=== PATIENT | male | born 1985 | race Caucasian/White ===

== ENCOUNTER 2016-09-22 03:16 | Emergency (ER) | payer OTHER ==
[~2016-09-22] VITALS: Ht 188 cm; Wt 115.7 kg
[2016-09-22 04:22] LABS: ABSOLUTE BASOPHIL COUNT 0 /CUMM (0.0-0.2); ABSOLUTE EOSINOPHIL COUNT 0.1 /CUMM (0.0-0.7); ABSOLUTE LYMPH COUNT 1.4 /CUMM (1.2-3.4); ABSOLUTE MONOCYTE COUNT 0.6 /CUMM (0.10-0.60); BASOPHIL % 0.5 % (0.0-2.0); EOSINOPHIL % 1.6 % (0-5); GRANULOCYTE % 65.5 % (42.2-75.2); HEMATOCRIT 43.5 % (42-52); MEAN CORPUSCULAR HGB 31.3 PG (27.0-31.0); MEAN CORPUSCULAR HGB CONC 35.3 G/DL (33.0-37.0); MEAN CORPUSCULAR VOLUME 88.7 FL (80.0-94.0); MEAN PLATELET VOLUME 8.4 FL (7.4-10.4); PLATELET COUNT 163 /CUMM (130-400); RBC DISTRIBUTION WIDTH 13.7 % (11.5-14.5); RED BLOOD CELL CT 4.91 /CUMM (4.70-6.10); WHITE BLOOD CELL COUNT 6.1 /CUMM (4.8-10.8)
[2016-09-22] MEDS ORDERED: LEVSIN-SL0.125 MG SL (05:09)
[2016-09-22] MEDS ORDERED: ULTRAM50 M1 PO (05:09)
[2016-09-22] MEDS ORDERED: ZOFRAN ODT4 M1 SL (05:09)
--- NOTE | 2016-09-22 05:11 | ED GI/GU/ABDOMINAL COMPLAINT ---
History of Present Illness General Chief Complaint: Abdominal Pain/Flank Pain Stated Complaint: ABD PAIN Source: patient, old records Exam Limitations: no limitations Vital Signs & Intake/Output Vital Signs & Intake/Output Vital Signs Date Time Temp Pulse Resp B/P Pulse O2 O2 Flow FiO2 Ox Delivery Rate 09/22 0340 99.5 124 18 168/89 96 Room Air Allergies Coded Allergies: No Known Allergies (09/22/16) Reconcile Medications Hyoscyamine Sulfate (Levsin-Sl) 0.125 MG TAB.SUBL 1-2 TAB SL Q4P PRN abdominal cramps, diarrhea Ondansetron (Zofran Odt) 4 MG TAB.RAPDIS 1 TAB SL TID PRN nausea vomiting Tramadol HCl (Ultram) 50 MG TABLET 1-2 TAB PO Q6PRN PRN severe pain Triage Note: PT TO ED C/O LUQ ABDOMINAL PAIN RADIATING TO BACK THAT BEGAN YESTERDAY MORNING GETTING INCREASINGLY WORSE, NAUSEA, 4 EPISODES OF VOMITING, DIARRHEA AND CHILLS. PT DENIES CP, SOB, FEVER. Triage Nurses Notes Reviewed? yes Onset: Morning Duration: hour(s):, continues in ED, waxing and waning Timing: recent history Quality/Severity: aching, severe, vomiting Location: epigastric, left upper quadrant Radiation: back Activities at Onset: none Prior Abdominal Problems: none Past Sexual History: Unobtainable at this time Modifying Factors: Worsens With: eating, palpation. Associated Symptoms: abdominal pain, diarrhea, loss of appetite, nausea/vomiting HPI: 1 day prior to admission patient complains of epigastric moderate to severe pain radiating to his back constant associated with nausea vomiting frequent loose watery stool. He denies fever chills chest pain cough shortness of breath headache dysuria rash bleeding Past History Travel History Traveled to [place] past 21 day No Medical History Any Pertinent Medical History? see below for history Cardiovascular: hypertension Surgical History Surgical History: non-contributory Psychosocial History What is your primary language Bhutanese Tobacco Use: Never used Family History Hx Contributory? No Review of Systems Review of Systems Constitutional: Reports: see HPI, malaise. EENTM: Reports: no symptoms. Respiratory: Reports: no symptoms. Cardiovascular: Reports: no symptoms. GI: Reports: see HPI, abdominal pain, diarrhea, nausea, vomiting. Genitourinary: Reports: no symptoms. Musculoskeletal: Reports: no symptoms. Skin: Reports: no symptoms. Neurological/Psychological: Reports: no symptoms. Hematologic/Endocrine: Reports: no symptoms. Immunologic/Allergic: Reports: no symptoms. All Other Systems: Reviewed and Negative Physical Exam Physical Exam General Appearance: well developed/nourished, alert, awake, anxious, moderate distress, obese Head: atraumatic, normal appearance Eyes: Bilateral: normal appearance, PERRL, EOMI, normal inspection. Ears, Nose, Throat, Mouth: hearing grossly normal, moist mucous membrane Neck: normal inspection, supple, full range of motion, normal alignment Respiratory: normal breath sounds, chest non-tender, no respiratory distress, quiet respiration, lungs clear Cardiovascular: regular rate/rhythm, normal peripheral pulses, norml femoral pulses equa Peripheral Pulses: 4+ carotid (R), 4+ carotid (L) Gastrointestinal: normal bowel sounds, soft, no organomegaly, tenderness ( epigastric) Male Genitals: normal genitalia Back: normal inspection, normal range of motion Extremities: normal range of motion, no ligament instability Neurologic/Psych: no motor/sensory deficits, awake, alert, oriented x 3, normal gait, normal mood/affect Skin: intact, normal color, warm/dry Core Measures ACS in differential dx? No Severe Sepsis Present: No Septic Shock Present: No Progress Differential Diagnosis: biliary colic, gastritis, PUD/GERD Plan of Care: Orders Procedure Date/time Status LIPASE 09/22 351 Complete COMPREHENSIVE METABOLIC PANEL 09/22 351 Complete CBC WITHOUT DIFFERENTIAL 09/22 351 Complete Laboratory Tests 09/22/16 0406: Anion Gap 14, Estimated GFR > 60, BUN/Creatinine Ratio 15.6, Glucose 126 H, Calcium 8.9, Total Bilirubin 1.0, AST 158 H, ALT 102 H, Alkaline Phosphatase 127 H, Total Protein 7.6, Albumin 4.4, Globulin 3.2, Albumin/Globulin Ratio 1.4 , Lipase 70, CBC w Diff NO MAN DIFF REQ, RBC 4.91, MCV 88.7, MCH 31.3 H, RDW 13.7, MPV 8.4, Gran % 65.5, Lymphocytes % 22.9, Monocytes % 9.5 H, Eosinophils % 1.6, Basophils % 0.5, Absolute Granulocytes 4.0, Absolute Lymphocytes 1.4, Absolute Monocytes 0.6, Absolute Eosinophils 0.1, Absolute Basophils 0, PUBS MCHC 35.3 Diagnostic Imaging: Viewed by Me: CT Scan. Discussed w/RAD: CT Scan. Radiology Impression: No acute inflammatory findings. Hepatomegaly with hepatic steatosis. Initial ED EKG: none Departure Departure Time of Disposition: 050 Disposition: HOME OR SELF CARE Condition: Stable Clinical Impression Primary Impression: Nausea, vomiting, and diarrhea Secondary Impressions: Abdominal pain Qualifiers: Abdominal location: epigastric Qualified Code: R10.13 - Epigastric pain Referrals: UNKNOWN (PCP/Family) Additional Instructions: Clear liquids in small amounts for 12-24 hours until better Departure Forms: Customer Survey General Discharge Information Prescriptions: Current Visit Scripts Ondansetron (Zofran Odt) 1 TAB SL TID PRN nausea vomiting #15 TAB Hyoscyamine Sulfate (Levsin-Sl) 1-2 TAB SL Q4P PRN abdominal cramps, diarrhea #30 TAB Tramadol HCl (Ultram) 1-2 TAB PO Q6PRN PRN severe pain #30 TAB
--- NOTE | 2016-09-22 06:27 | CT SCAN REPORT ---
EXAMINATION: CT ABDOMEN AND PELVIS WITHOUT CONTRAST CLINICAL INFORMATION: Epigastric pain. Nausea, vomiting, diarrhea. COMPARISON: None TECHNIQUE: Multidetector volumetric imaging was performed from the superior aspect of the liver through the pubic symphysis. Sagittal and coronal reformatted images were obtained on the technologist's workstation. DLP: 1483 mGy-cm FINDINGS: LUNG BASES: The visualized lung bases are unremarkable. LIVER, GALLBLADDER, AND BILIARY TREE: The liver is enlarged, measuring 25 cm in CC dimension. It is diffusely decreased in attenuation, consistent with hepatic steatosis. No focal hepatic lesion. The gallbladder is unremarkable with no evidence of radiopaque gallstones, gallbladder wall thickening, or obvious pericholecystic inflammatory changes. PANCREAS: Unremarkable. SPLEEN: Unremarkable. ADRENAL GLANDS: Unremarkable. KIDNEYS AND URETERS: The kidneys are normal in size, shape, and attenuation. No hydronephrosis, hydroureter, or calculi seen. No perinephric stranding. BLADDER: Unremarkable. GASTROINTESTINAL TRACT: The stomach and small bowel appear unremarkable. No dilated loops of bowel or evidence of obstruction. Normal appendix. Scattered colonic diverticulosis without diverticulitis. No free air or free fluid. ABDOMINAL WALL: No significant hernia is appreciated. LYMPH NODES: Normal. VASCULAR: Unremarkable. PELVIC VISCERA: The prostate and seminal vesicles are unremarkable. OSSEOUS STRUCTURES: No acute or suspicious osseous abnormality. IMPRESSION: No acute inflammatory findings. Hepatomegaly with hepatic steatosis.
[2016-09-22 06:45] VITALS: BP 155/74
== END 2016-09-22 06:45 ==
LOC: ERH 03:16
PROVIDERS: Emergency Medicine
DX: R11.2 Nausea with vomiting, unspecified (principal); R19.7 Diarrhea, unspecified; R10.13 Epigastric pain
CPT/HCPCS: 74176; 96374; 96375; 96376; J1885; J2405

== ENCOUNTER 2016-10-17 17:26 | Emergency (ER) | payer OTHER ==
[~2016-10-17] VITALS: Ht 188 cm; Wt 117.9 kg
[~2016-10-17 17:26] MED LIST: LEVSIN-SL0.125 MG SL; ULTRAM50 M1 PO; ZOFRAN ODT4 M1 SL
--- NOTE | 2016-10-17 17:38 | ED GI/GU/ABDOMINAL COMPLAINT ---
History of Present Illness General Chief Complaint: Abdominal Pain/Flank Pain Stated Complaint: ABD/BACK PAIN Source: patient, family Exam Limitations: no limitations Vital Signs & Intake/Output Vital Signs & Intake/Output Vital Signs Date Time Temp Pulse Resp B/P Pulse O2 O2 Flow FiO2 Ox Delivery Rate 10/17 1859 98.5 113 18 131/72 95 Room Air Room Air 10/17 1733 98.6 120 16 146/80 98 Room Air Room Air ED Intake and Output 10/18 0000 10/17 1200 Intake Total 1000 Output Total Balance 1000 Intake, IV 1000 Patient 260 lb Weight Allergies Coded Allergies: No Known Allergies (10/17/16) Reconcile Medications Amlodipine Besylate 10 MG TABLET 1 TAB PO DAILY BP (Reported) Metoprolol Tartrate 25 MG TABLET 1 TAB PO BID HEART/BP (Reported) Ondansetron (Zofran Odt) 4 MG TAB.RAPDIS 1 TAB SL TID PRN nausea Oxycodone HCl/Acetaminophen (Percocet 5-325 MG Tablet) 5 MG-325 MG TABLET 1 TAB PO Q6H PRN PAIN do not drink any alcohol if you take this medication Pantoprazole Sodium (Protonix) 40 MG TABLET.DR 1 TAB PO DAILY abdominal pain Zolpidem Tartrate 10 MG TABLET 1 TAB PO PRN SLEEP (Reported) Triage Note: PT TOT RIAGE WITH LEFT SIDED ABD PAIN THAT RADIATES INTO HIS BACK. STATES IT STARTED TODAY AND FEELS LIKE PANCREATITIS, WITH HX OF THE SAME. DENIES FEVERS, NAUSEOUS WITHOUT VOMITING. Triage Nurses Notes Reviewed? yes HPI: Patient is a 30-year-old male resents complaining of left upper abdominal pain radiating into his back. Pain onset a couple of hours ago. Pain is a sharp pain is currently severe worsens with palpation. Pain is consistent with patient's previous episodes of pancreatitis. Patient reports that his pancreatitis is multifactorial, was on doxycycline for an extended course which he was told could cause pancreatitis, also has a history of elevated triglycerides, and drinks alcohol 3-4 drinks almost daily. Last alcohol intake was today. Associated nausea and chills. Patient's temperature was 99.6F at home today. The patient sees a install and repair technician out of [place](DR. Henriquez). Patient denies urinary symptoms, diarrhea, chest pain, dyspnea. (RONALDO KIDD,KEL) Past History Travel History Traveled to [place] past 21 day No Medical History Any Pertinent Medical History? see below for history Neurological: NONE EENT: NONE Cardiovascular: hypertension Respiratory: NONE Gastrointestinal: pancreatitis Hepatic: NONE Renal: NONE Musculoskeletal: NONE Psychiatric: NONE Endocrine: NONE Blood Disorders: NONE Cancer(s): NONE Surgical History Surgical History: non-contributory Psychosocial History What is your primary language South African Tobacco Use: Never used ETOH Use: heavy use Illicit Drug Use: denies illicit drug use Family History Hx Contributory? No (KEL VELAZQUEZ) Review of Systems Review of Systems Constitutional: Reports: chills. Denies: fever. EENTM: Reports: no symptoms. Respiratory: Denies: cough, short of breath. Cardiovascular: Denies: chest pain. GI: Reports: see HPI. Genitourinary: Reports: no symptoms. Musculoskeletal: Reports: back pain. Skin: Reports: no symptoms. Neurological/Psychological: Reports: no symptoms. Hematologic/Endocrine: Reports: no symptoms. Immunologic/Allergic: Reports: no symptoms. (KEL VELAZQUEZ) Physical Exam Physical Exam General Appearance: alert, awake Head: atraumatic, normal appearance Eyes: Bilateral: normal appearance, PERRL, EOMI. Ears, Nose, Throat, Mouth: hearing grossly normal, moist mucous membrane Neck: normal inspection, supple, full range of motion Respiratory: normal breath sounds, chest non-tender, no respiratory distress, lungs clear Cardiovascular: tachycardia (regular rhythm, no murmur) Gastrointestinal: soft, epigastric and left upper quadrant tenderness. Negative García sign, negative McBurney's point tenderness Back: left paraspinal tenderness in the superior lumbar area Extremities: normal range of motion, no edema, no calf tenderness Neurologic/Psych: no motor/sensory deficits, awake, alert, oriented x 3, normal mood/affect Skin: intact, normal color, warm/dry Core Measures ACS in differential dx? No Severe Sepsis Present: No Septic Shock Present: No (KEL VELAZQUEZ) Progress Differential Diagnosis: gastritis, hepatitis, pancreatitis, PUD/GERD, ureterolithiasis, UTI/pyelo Plan of Care: Orders Procedure Date/time Status LIPASE 10/17 174 Complete ETHANOL 10/17 1744 Complete COMPREHENSIVE METABOLIC PANEL 10/17 174 Complete CBC WITHOUT DIFFERENTIAL 10/18 1743 Complete AMYLASE 10/17 174 Complete Laboratory Tests 10/17/16 1757: Anion Gap 14, Estimated GFR > 60, BUN/Creatinine Ratio 15.6, Glucose 173 H, Calcium 8.8, Total Bilirubin 0.6, AST 168 H, ALT 161 H, Alkaline Phosphatase 127 H, Total Protein 7.3, Albumin 4.4, Globulin 2.9, Albumin/Globulin Ratio 1.5 , Amylase < 30 L, Lipase 92, CBC w Diff NO MAN DIFF REQ, RBC 5.06, MCV 89.7, MCH 31.0, RDW 14.5, MPV 8.1, Gran % 63.8, Lymphocytes % 26.0, Monocytes % 8.4, Eosinophils % 1.3, Basophils % 0.5, Absolute Granulocytes 4.5, Absolute Lymphocytes 1.9, Absolute Monocytes 0.6, Absolute Eosinophils 0.1, Absolute Basophils 0, PUBS MCHC 34.6, Serum Alcohol 158.0 10/17/2016 6:51:10 PM: Labs consistent with previous. Patient reports that he had moderate relief initially from the pain medication and antinausea medicine and now pain is returning. Results of labs discussed with patient. Discussed with patient the importance of refraining from alcohol. Offered patient resources for alcohol detox, patient declined. Patient instructed to follow up with his install and repair technician for further evaluation. Additional pain medication and antinausea medication ordered. (KEL VELAZQUEZ) Initial ED EKG: none (KEL VELAZQUEZ) Departure Departure Disposition: HOME OR SELF CARE Condition: Stable Clinical Impression Primary Impression: Abdominal pain Qualifiers: Abdominal location: left upper quadrant Qualified Code: R10.12 - Left upper quadrant pain Secondary Impressions: Alcohol intoxication Qualifiers: Complication of substance-induced condition: with unspecified complication Qualified Code: F10.129 - Alcohol abuse with intoxication, unspecified Chronic pancreatitis Qualifiers: Pancreatitis type: unspecified pancreatitis type Qualified Code: K86.1 - Other chronic pancreatitis Referrals: UNKNOWN (PCP/Family) Additional Instructions: Follow up with your GI doctor, Dr. Henriquez, this week for further evaluation. Clear liquid diet for the next 24-48 hours then advance diet as tolerated. It is very important that you cut down and ultimately eliminate alcohol. If you are going through severe withdrawal then you can come back to the emergency department for further evaluation. Also return to the emergency department if unable to stay hydrated, temperature goes above 100.4, pain uncontrollable or worsening of symptoms. Departure Forms: Customer Survey General Discharge Information Prescriptions: Current Visit Scripts Pantoprazole Sodium (Protonix) 1 TAB PO DAILY #14 TAB Ondansetron (Zofran Odt) 1 TAB SL TID PRN nausea #10 TAB Oxycodone HCl/Acetaminophen (Percocet 5-325 MG Tablet) 1 TAB PO Q6H PRN PAIN #10 TAB do not drink any alcohol if you take this medication (KEL VELAZQUEZ) PA/GROUND LAYER Co-Sign Statement Statement: ED Attending supervision documentation- [] I saw and evaluated the patient. I have also reviewed all the pertinent lab results and diagnostic results. I agree with the findings and the plan of care as documented in the PA's/GROUND LAYER's documentation. [X] I have reviewed the ED Record and agree with the PA's/GROUND LAYER's documentation. [] Additions or exceptions (if any) to the PAs/GROUND LAYER's note and plan are summarized below: [] (ANTONIO LISA,CARITO)
[2016-10-17 18:11] LABS: ABSOLUTE BASOPHIL COUNT 0 /CUMM (0.0-0.2); ABSOLUTE EOSINOPHIL COUNT 0.1 /CUMM (0.0-0.7); ABSOLUTE GRANULOCYTE CT 4.5 /CUMM (1.4-6.5); ABSOLUTE LYMPH COUNT 1.9 /CUMM (1.2-3.4); ABSOLUTE MONOCYTE COUNT 0.6 /CUMM (0.10-0.60); BASOPHIL % 0.5 % (0.0-2.0); EOSINOPHIL % 1.3 % (0-5); GRANULOCYTE % 63.8 % (42.2-75.2); HEMATOCRIT 45.4 % (42-52); MEAN CORPUSCULAR HGB CONC 34.6 G/DL (33.0-37.0); MEAN CORPUSCULAR VOLUME 89.7 FL (80.0-94.0); MEAN PLATELET VOLUME 8.1 FL (7.4-10.4); PLATELET COUNT 265 /CUMM (130-400); RBC DISTRIBUTION WIDTH 14.5 % (11.5-14.5); RED BLOOD CELL CT 5.06 /CUMM (4.70-6.10); WHITE BLOOD CELL COUNT 7.1 /CUMM (4.8-10.8)
[2016-10-17] MEDS ORDERED: METOPROLOL TART25 M1 PO (18:35)
[2016-10-17] MEDS ORDERED: AMLODIPINE BESY10 M1 PO (18:35)
[2016-10-17] MEDS ORDERED: ZOLPIDEM TARTRA10 M1 PO (18:36)
[2016-10-17] MEDS ORDERED: ZOFRAN ODT4 M1 SL (18:47)
[2016-10-17] MEDS ORDERED: PERCOCET 5-3251 EACH PO (18:47)
[2016-10-17] MEDS ORDERED: PROTONIX40 M3 PO (18:47)
[2016-10-17 18:59] VITALS: BP 131/72
== END 2016-10-17 19:25 ==
LOC: ERH 17:26
PROVIDERS: Physician Assistant
DX: R10.12 Left upper quadrant pain (principal); R10.13 Epigastric pain; F10.129 Alcohol abuse with intoxication, unspecified; K86.1 Other chronic pancreatitis
CPT/HCPCS: 96361; 96374; 96375; 96376; G0480; J2405; J2765

== ENCOUNTER 2016-10-27 20:46 | Emergency (ER) | payer OTHER ==
[~2016-10-27] VITALS: Ht 188 cm; Wt 108.9 kg
[~2016-10-27 20:46] MED LIST changes: +AMLODIPINE BESY10 M1 PO; +METOPROLOL TART25 M1 PO; +PERCOCET 5-3251 EACH PO; +PROTONIX40 M3 PO; +ZOLPIDEM TARTRA10 M1 PO
[2016-10-27 22:21] LABS: ABSOLUTE BASOPHIL COUNT 0.1 /CUMM (0.0-0.2); ABSOLUTE EOSINOPHIL COUNT 0.2 /CUMM (0.0-0.7); ABSOLUTE GRANULOCYTE CT 4.4 /CUMM (1.4-6.5); ABSOLUTE MONOCYTE COUNT 0.4 /CUMM (0.10-0.60); BASOPHIL % 1.1 % (0.0-2.0); EOSINOPHIL % 2.4 % (0-5); GRANULOCYTE % 62.2 % (42.2-75.2); HEMATOCRIT 46.3 % (42-52); MEAN CORPUSCULAR HGB 31.5 PG (27.0-31.0); MEAN CORPUSCULAR HGB CONC 35.4 G/DL (33.0-37.0); MEAN CORPUSCULAR VOLUME 89.1 FL (80.0-94.0); MEAN PLATELET VOLUME 8.2 FL (7.4-10.4); PLATELET COUNT 253 /CUMM (130-400); RBC DISTRIBUTION WIDTH 13.7 % (11.5-14.5)
--- NOTE | 2016-10-27 23:36 | ED GI/GU/ABDOMINAL COMPLAINT ---
History of Present Illness General Chief Complaint: Abdominal Pain/Flank Pain Stated Complaint: ABD/BACK PAIN, NAUSEA, VOMITING, DIARRHEA PERPT Source: patient Exam Limitations: no limitations Vital Signs & Intake/Output Vital Signs & Intake/Output Vital Signs Date Time Temp Pulse Resp B/P Pulse O2 O2 Flow FiO2 Ox Delivery Rate 10/28 0031 98.1 103 18 120/74 96 Room Air 10/27 2322 98.4 128 20 116/68 95 Room Air 10/27 2136 Room Air 10/28 2051 96.0 122 18 180/99 98 Room Air ED Intake and Output 10/28 0000 10/27 1200 Intake Total 1000 Output Total Balance 1000 Intake, IV 1000 Patient 240 lb Weight Allergies Coded Allergies: azithromycin (Mild, HIVES 10/27/16) Reconcile Medications Amlodipine Besylate 10 MG TABLET 1 TAB PO DAILY BP (Reported) Metoprolol Tartrate 25 MG TABLET 1 TAB PO BID HEART/BP (Reported) Ondansetron (Zofran Odt) 4 MG TAB.RAPDIS 1 TAB SL TID nausea Oxycodone HCl/Acetaminophen (Percocet 5-325 MG Tablet) 5 MG-325 MG TABLET 1-2 TAB PO Q6P PRN pain Zolpidem Tartrate 10 MG TABLET 1 TAB PO PRN SLEEP (Reported) Triage Note: PT TO TRIAGE WITH C/O LUQ ABD PAIN 7/10, NAUSEA STARTED FEW HRS AGO. HX OF PANCREATITIS. PT DENIES V/D, DENIES CHEST PAIN. VSS. Triage Nurses Notes Reviewed? yes Onset: Abrupt Duration: hour(s):, constant, continues in ED Timing: single episode today Quality/Severity: moderate, sharpness, severe Location: epigastric Radiation: back No Modifying Factors: none HPI: 40-year-old male comes into emergency room for further evaluation of severe epigastric pain this been going on for the past few hours. Patient has a history of pancreatitis. Patient has a history of drinking heavy amounts of alcohol and admits to drinking today. Denies any fever chills vomiting. Denies any changes in bowel movement. Pain radiates directly to his back. The blood in his stool. (RALPH SANCHEZ) Past History Travel History Traveled to [place] past 21 day No Medical History Any Pertinent Medical History? see below for history Neurological: NONE EENT: NONE Cardiovascular: hypertension Respiratory: NONE Gastrointestinal: pancreatitis Hepatic: NONE Renal: NONE Musculoskeletal: NONE Psychiatric: NONE Endocrine: NONE Blood Disorders: NONE Cancer(s): NONE Surgical History Surgical History: non-contributory Psychosocial History What is your primary language Peruvian Tobacco Use: Never used Family History Hx Contributory? No (RALPH SANCHEZ) Review of Systems Review of Systems Constitutional: Reports: no symptoms. EENTM: Reports: no symptoms. Respiratory: Reports: no symptoms. Cardiovascular: Reports: no symptoms. GI: Reports: see HPI. Genitourinary: Reports: see HPI. Musculoskeletal: Reports: no symptoms. Skin: Reports: no symptoms. Neurological/Psychological: Reports: no symptoms. Hematologic/Endocrine: Reports: no symptoms. Immunologic/Allergic: Reports: no symptoms. All Other Systems: Reviewed and Negative (RALPH SANCHEZ) Physical Exam Physical Exam General Appearance: well developed/nourished, no apparent distress, alert, awake Head: atraumatic, normal appearance Eyes: Bilateral: normal appearance, EOMI. Ears, Nose, Throat, Mouth: hearing grossly normal, moist mucous membrane Neck: normal inspection, full range of motion Respiratory: normal breath sounds, no respiratory distress Cardiovascular: regular rate/rhythm Gastrointestinal: soft, tenderness Back: normal inspection Extremities: normal range of motion Neurologic/Psych: awake, alert, oriented x 3, normal gait, normal mood/affect Skin: intact, normal color Core Measures ACS in differential dx? No Severe Sepsis Present: No Septic Shock Present: No (RALPH SANCHEZ) Progress Differential Diagnosis: AMI, biliary colic, bowel obstruction, cholecystitis, diverticulitis, gastritis, hepatitis, hernia, pancreatitis, prostatitis, peptic ulcer, PUD/GERD, perforated viscous, pyelonephritis, testicular torsion, ureterolithiasis, urinary retention, urethritis, UTI/pyelo Plan of Care: Orders Procedure Date/time Status Add-on Test (ER Only) 10/28 2211 Active ETHANOL 10/27 2209 Complete LIPASE 10/28 2151 Complete COMPREHENSIVE METABOLIC PANEL 10/28 2151 Complete CBC WITHOUT DIFFERENTIAL 10/28 2151 Complete AMYLASE 10/28 2151 Complete Laboratory Tests 10/27/162209: Anion Gap 18 H, Estimated GFR > 60, BUN/Creatinine Ratio 13.3, Glucose 168 H, Calcium 9.4, Total Bilirubin 0.6, AST 178 H, ALT 159 H, Alkaline Phosphatase 183 H, Total Protein 7.7, Albumin 4.5, Globulin 3.2, Albumin/Globulin Ratio 1.4 , Amylase < 30 L, Lipase 111, CBC w Diff NO MAN DIFF REQ, RBC 5.20, MCV 89.1, MCH 31.5 H, RDW 13.7, MPV 8.2, Gran % 62.2, Lymphocytes % 28.3, Monocytes % 6.0 , Eosinophils % 2.4, Basophils % 1.1, Absolute Granulocytes 4.4, Absolute Lymphocytes 2.0, Absolute Monocytes 0.4, Absolute Eosinophils 0.2, Absolute Basophils 0.1, PUBS MCHC 35.4, Serum Alcohol 255.0 10/27/162151: Urine Color Cancelled, Urine Clarity Cancelled, Urine pH Cancelled, Ur Specific [place] Cancelled, Urine Protein Cancelled, Urine Ketones Cancelled, Urine Nitrite Cancelled, Urine Bilirubin Cancelled, Urine Urobilinogen Cancelled, Ur Leukocyte Esterase Cancelled, Ur Microscopic Cancelled, Urine Hemoglobin Cancelled, Urine Glucose Cancelled Initial ED EKG: none Comments: PATIENT HAS DECLINED ct SCAN AT THIS TIME. pATIENT DOES NOT WANT TO WAIT AND GO TO [facility] scan due to the fact that we are on CT diversion. Symptoms are likely related to alcoholic gastritis versus atypical pancreatitis however pancreatic enzymes are negative at this time. Considered peptic ulcer as well. Hemodynamically stable. No acute abdomen. Clinically sober. is driving the patient home. Patient was instructed he must return to the emergency room immediately if he has any worsening of symptoms. Patient was told that he needs to discontinue drinking alcohol all together. Patient will comply and follow up with his primary doctor he reports. Clinically looks well on discharge. Heart rate improved. (RALPH SANCHEZ) Departure Departure Disposition: HOME OR SELF CARE Condition: Stable Clinical Impression Primary Impression: Abdominal pain Referrals: TYRA LISA,DAILY Hudson (PCP) Additional Instructions: Take Percocet and Zofran ODT as prescribed. Discontinue drinking any alcohol at all. Follow-up with your primary care doctor. Return immediately if any other concerns worsening symptoms. Please go over all results of today's visit with your primary care doctor. Contact your primary care doctor to let them know you were here in the emergency room. There may be nonspecific findings which may not be related to your visit today here in the emergency room but may require further evaluation and chronic monitoring by your primary care doctor. If you had a laceration today the chance of foreign body always remains. You should follow-up with your primary care doctor for recheck in 3-5 days for a wound check. If you had an x-ray done there is a chance that a fracture could have been missed on initial read and you should follow-up with your primary care doctor for repeat x-rays if symptoms persist. If your blood pressure was elevated here in the emergency room please have rechecked by her primary care doctor within the next 48 hours by your primary care doctor. If you were prescribed a narcotic here in the emergency room or any type of controlled substances you're not allowed to drive while taking this medication or operate any type of heavy machinery. Narcotics can make you feel lightheaded dizziness nausea and can cause constipation. You may need to waste picker a stool softener. Thank you for choosing emergency room. Please return to the emergency room immediately if you have any other concerns worsening of symptoms. Departure Forms: Customer Survey General Discharge Information Prescriptions: Current Visit Scripts Ondansetron (Zofran Odt) 1 TAB SL TID #10 TAB Oxycodone HCl/Acetaminophen (Percocet 5-325 MG Tablet) 1-2 TAB PO Q6P PRN pain #15 TAB (RALPH SANCHEZ) PA/SCRUFF WORKER Co-Sign Statement Statement: ED Attending supervision documentation- [] I saw and evaluated the patient. I have also reviewed all the pertinent lab results and diagnostic results. I agree with the findings and the plan of care as documented in the PA's/SCRUFF WORKER's documentation. [X] I have reviewed the ED Record and agree with the PA's/SCRUFF WORKER's documentation. [] Additions or exceptions (if any) to the PAs/SCRUFF WORKER's note and plan are summarized below: [] (ANTONIO LISA,CARITO)
[2016-10-28] MEDS ORDERED: ZOFRAN ODT4 M1 SL (00:20)
[2016-10-28] MEDS ORDERED: PERCOCET 5-3251 EACH PO (00:20)
[2016-10-28 00:31] VITALS: BP 120/74
== END 2016-10-28 00:33 ==
LOC: ERH 20:46
PROVIDERS: Physician Assistant Medical
DX: R10.13 Epigastric pain (principal)
CPT/HCPCS: 96374; 96375; 96376; G0480; J2405

== ENCOUNTER 2016-12-17 22:46 | Emergency (ER) | payer OTHER ==
[~2016-12-17] VITALS: Ht 188 cm; Wt 56.7 kg
[2016-12-17 23:17] LABS: ABSOLUTE BASOPHIL COUNT 0.1 /CUMM (0.0-0.2); ABSOLUTE EOSINOPHIL COUNT 0.1 /CUMM (0.0-0.7); ABSOLUTE GRANULOCYTE CT 4.6 /CUMM (1.4-6.5); ABSOLUTE MONOCYTE COUNT 0.5 /CUMM (0.10-0.60); BASOPHIL % 0.8 % (0.0-2.0); EOSINOPHIL % 1.5 % (0-5); GRANULOCYTE % 63.5 % (42.2-75.2); HEMATOCRIT 47.8 % (42-52); MEAN CORPUSCULAR HGB CONC 34.5 G/DL (33.0-37.0); MEAN CORPUSCULAR VOLUME 89.8 FL (80.0-94.0); MEAN PLATELET VOLUME 7.9 FL (7.4-10.4); PLATELET COUNT 263 /CUMM (130-400); RBC DISTRIBUTION WIDTH 13.5 % (11.5-14.5); RED BLOOD CELL CT 5.32 /CUMM (4.70-6.10); WHITE BLOOD CELL COUNT 7.3 /CUMM (4.8-10.8)
--- NOTE | 2016-12-18 00:12 | ED GI/GU/ABDOMINAL COMPLAINT ---
History of Present Illness General Chief Complaint: Abdominal Pain/Flank Pain Stated Complaint: ABD PAIN, NVD Source: patient Exam Limitations: no limitations Vital Signs & Intake/Output Vital Signs & Intake/Output Vital Signs Date Time Temp Pulse Resp B/P B/P Pulse O2 O2 Flow FiO2 Mean Ox Delivery Rate 12/18 0157 98.0 96 18 130/77 98 12/18 0107 98.3 115 20 148/74 97 12/17 2250 98.5 125 18 156/99 100 Room Air ED Intake and Output 12/18 0000 12/17 1200 Intake Total Output Total Balance Patient 125 lb Weight Weight Reported by Patient Measurement Method Allergies Coded Allergies: azithromycin (Mild, HIVES 10/27/16) Reconcile Medications Amlodipine Besylate 10 MG TABLET 1 TAB PO DAILY BP (Reported) Metoprolol Tartrate 25 MG TABLET 1 TAB PO BID HEART/BP (Reported) Ondansetron (Zofran Odt) 4 MG TAB.RAPDIS 1 TAB SL TID nausea Ondansetron (Zofran Odt) 4 MG TAB.RAPDIS 1 TAB SL TID PRN nausea Oxycodone HCl/Acetaminophen (Percocet 5-325 MG Tablet) 5 MG-325 MG TABLET 1-2 TAB PO Q6P PRN pain Oxycodone HCl/Acetaminophen (Percocet 5-325 MG Tablet) 5 MG-325 MG TABLET 1 TAB PO 4XDP PRN PAIN TEN...[id number] Pantoprazole Sodium (Protonix) 40 MG TABLET.DR 1 TAB PO DAILY mid epigastric discomfort Zolpidem Tartrate 10 MG TABLET 1 TAB PO PRN SLEEP (Reported) Triage Note: PT TO ED FOR ABD X 3 HOURS, REPORTING HE HAS A HX OF PANCREATITIS AND BELIEVES HE HAS IT AGAIN. Triage Nurses Notes Reviewed? yes HPI: 31 yo gentleman with hypertriglyceridemia induced pancreatitis, presents with 2-3 days of mid epigastric pain. Past History Travel History Traveled to [place] past 21 day No Medical History Any Pertinent Medical History? see below for history Neurological: NONE EENT: NONE Cardiovascular: hypertension Respiratory: NONE Gastrointestinal: pancreatitis Hepatic: NONE Renal: NONE Musculoskeletal: NONE Psychiatric: NONE Endocrine: NONE Blood Disorders: NONE Cancer(s): NONE Surgical History Surgical History: non-contributory Psychosocial History What is your primary language Grenadian Tobacco Use: Never used ETOH Use: heavy use Illicit Drug Use: denies illicit drug use Family History Hx Contributory? No Review of Systems Review of Systems Constitutional: Reports: no symptoms. EENTM: Reports: no symptoms. Respiratory: Reports: no symptoms. Cardiovascular: Reports: no symptoms. GI: Reports: no symptoms. Genitourinary: Reports: no symptoms. Musculoskeletal: Reports: no symptoms. Skin: Reports: no symptoms. Neurological/Psychological: Reports: no symptoms. Hematologic/Endocrine: Reports: no symptoms. Immunologic/Allergic: Reports: no symptoms. All Other Systems: Reviewed and Negative Physical Exam Physical Exam General Appearance: well developed/nourished, mild distress Head: atraumatic, normal appearance Eyes: Bilateral: normal appearance. Ears, Nose, Throat, Mouth: hearing grossly normal Neck: normal inspection, supple, full range of motion, normal alignment Respiratory: normal breath sounds Cardiovascular: regular rate/rhythm, edema, gallop, JVD, murmur Gastrointestinal: normal bowel sounds, soft, non-tender Back: normal inspection, normal range of motion Extremities: normal range of motion Neurologic/Psych: no motor/sensory deficits, awake, alert, oriented x 3 Core Measures ACS in differential dx? No Severe Sepsis Present: No Septic Shock Present: No Progress Differential Diagnosis: appendicitis, cholecystitis, diverticulitis, epididymitis, gastritis, hepatitis, hernia Plan of Care: Orders Procedure Date/time Status TRIGLYCERIDES 12/17 2253 Complete LIPASE 12/18 2251 Complete COMPREHENSIVE METABOLIC PANEL 12/18 2251 Complete CBC WITHOUT DIFFERENTIAL 12/18 2251 Complete AMYLASE 12/18 2251 Complete Laboratory Tests 12/17/16 2301: Triglycerides 581 H 12/17/16 2301: Anion Gap 20 H, Estimated GFR > 60, BUN/Creatinine Ratio 15.7, Glucose 159 H, Calcium 9.2, Total Bilirubin 0.6, AST 72 H, ALT 117 H, Alkaline Phosphatase 141 H, Total Protein 8.0, Albumin 4.9, Globulin 3.1, Albumin/Globulin Ratio 1.6 , Amylase 43, Lipase 65, CBC w Diff NO MAN DIFF REQ, RBC 5.32, MCV 89.8, MCH 31.0, RDW 13.5, MPV 7.9, Gran % 63.5, Lymphocytes % 27.3, Monocytes % 6.9, Eosinophils % 1.5, Basophils % 0.8, Absolute Granulocytes 4.6, Absolute Lymphocytes 2.0, Absolute Monocytes 0.5, Absolute Eosinophils 0.1, Absolute Basophils 0.1, PUBS MCHC 34.5 Diagnostic Imaging: Viewed by Me: CT Scan. Discussed w/RAD: CT Scan. Radiology Impression: abd/pelvic ct... no acute findings. Initial ED EKG: none Comments: PATIENT: SHELLIE ARIZA PRESENT AGE: 31 PATIENT ACCOUNT NO: [id number] : 83 LOCATION: [facility] ORDERING PHYSICIAN: TEMITOPE JOHNSTON MD SERVICE DATE: 12/18/16 EXAM TYPE: CAT - CT ABD & PELVIS W/O IV CONTRAS EXAMINATION: CT ABDOMEN AND PELVIS WITHOUT CONTRAST CLINICAL INFORMATION: Midepigastric abdominal pain. COMPARISON: 09/22/2016 TECHNIQUE: Multidetector volumetric imaging was performed from the superior aspect of the liver through the pubic symphysis. Sagittal and coronal reformatted images were obtained on the technologist's workstation. DLP: 939 mGy-cm FINDINGS: LUNG BASES: The visualized lung bases are unremarkable. LIVER, GALLBLADDER, AND BILIARY TREE: The liver is enlarged, measuring 28 cm in CC dimension. The liver is normal in shape and attenuation. No focal hepatic lesion or biliary ductal dilatation is present. The gallbladder is unremarkable with no evidence of radiopaque gallstones, gallbladder wall thickening, or obvious pericholecystic inflammatory changes. PANCREAS: Unremarkable. SPLEEN: Unremarkable. ADRENAL GLANDS: Unremarkable. KIDNEYS AND URETERS: The kidneys are normal in size, shape, and attenuation. No hydronephrosis, hydroureter, or calculi seen. No perinephric stranding. BLADDER: Unremarkable. GASTROINTESTINAL TRACT: The small and large bowel are unremarkable. The appendix is unremarkable. ABDOMINAL WALL: No significant hernia is appreciated. LYMPH NODES: Normal. VASCULAR: Unremarkable. PELVIC VISCERA: The prostate and seminal vesicles are unremarkable. OSSEOUS STRUCTURES: Unremarkable. IMPRESSION: No acute findings of the abdomen or pelvis. Redemonstration of hepatomegaly. DICTATED BY: SHARON BELLE MD DATE/TIME DICTATED:12/18/16105 [employer] CLE[employer]ER:EVELYN DATE/TIME TRANSCRIBED:12/18/16105 CONFIDENTIAL, DO NOT COPY WITHOUT APPROPRIATE AUTHORIZATION. <Electronically signed in Other Vendor System> SIGNED BY: SHARON BELLE MD 12/18 Departure Departure Disposition: HOME OR SELF CARE Condition: Stable Clinical Impression Primary Impression: Abdominal pain Referrals: TYRA LISA,DAILY Hudson (PCP) Departure Forms: Customer Survey General Discharge Information Prescriptions: Current Visit Scripts Oxycodone HCl/Acetaminophen (Percocet 5-325 MG Tablet) 1 TAB PO 4XDP PRN PAIN #10 TAB TEN...[id number] Pantoprazole Sodium (Protonix) 1 TAB PO DAILY #30 TAB Ref 1 Ondansetron (Zofran Odt) 1 TAB SL TID PRN nausea #10 TAB Comments 12/18/16, 1:54am... pt more comfortable... labs and ct scan benign... pt safe for discharge. pt has follow up appt with gi... encouraged close follow up.
--- NOTE | 2016-12-18 01:13 | CT SCAN REPORT ---
EXAMINATION: CT ABDOMEN AND PELVIS WITHOUT CONTRAST CLINICAL INFORMATION: Midepigastric abdominal pain. COMPARISON: 09/22/2016 TECHNIQUE: Multidetector volumetric imaging was performed from the superior aspect of the liver through the pubic symphysis. Sagittal and coronal reformatted images were obtained on the technologist's workstation. DLP: 939 mGy-cm FINDINGS: LUNG BASES: The visualized lung bases are unremarkable. LIVER, GALLBLADDER, AND BILIARY TREE: The liver is enlarged, measuring 28 cm in CC dimension. The liver is normal in shape and attenuation. No focal hepatic lesion or biliary ductal dilatation is present. The gallbladder is unremarkable with no evidence of radiopaque gallstones, gallbladder wall thickening, or obvious pericholecystic inflammatory changes. PANCREAS: Unremarkable. SPLEEN: Unremarkable. ADRENAL GLANDS: Unremarkable. KIDNEYS AND URETERS: The kidneys are normal in size, shape, and attenuation. No hydronephrosis, hydroureter, or calculi seen. No perinephric stranding. BLADDER: Unremarkable. GASTROINTESTINAL TRACT: The small and large bowel are unremarkable. The appendix is unremarkable. ABDOMINAL WALL: No significant hernia is appreciated. LYMPH NODES: Normal. VASCULAR: Unremarkable. PELVIC VISCERA: The prostate and seminal vesicles are unremarkable. OSSEOUS STRUCTURES: Unremarkable. IMPRESSION: No acute findings of the abdomen or pelvis. Redemonstration of hepatomegaly.
[2016-12-18] MEDS ORDERED: PROTONIX40 M3 PO (01:54)
[2016-12-18] MEDS ORDERED: ZOFRAN ODT4 M1 SL (01:54)
[2016-12-18] MEDS ORDERED: PERCOCET 5-3251 EACH PO (01:54)
[2016-12-18 01:57] VITALS: BP 130/77
[2017-02-01] MEDS ORDERED: PERCOCET 5-3251 EACH PO (22:24)
[2017-02-01] MEDS ORDERED: ZOFRAN ODT4 M1 SL (22:24)
== END 2016-12-18 01:58 ==
LOC: ERH 22:46
PROVIDERS: Pediatrics
DX: R10.13 Epigastric pain (principal)
CPT/HCPCS: 74176; 96374; 96375

== ENCOUNTER 2017-03-11 20:38 | Emergency (ER) | payer OTHER ==
[~2017-03-11] VITALS: Ht 188 cm; Wt 122.5 kg
--- NOTE | 2017-03-11 21:05 | ED GI/GU/ABDOMINAL COMPLAINT ---
History of Present Illness General Chief Complaint: Abdominal Pain/Flank Pain Stated Complaint: ABD PAIN RADIATING TO BACK Source: patient, family, old records Exam Limitations: no limitations Vital Signs & Intake/Output Vital Signs & Intake/Output Vital Signs Date Time Temp Pulse Resp B/P B/P Pulse O2 O2 Flow FiO2 Mean Ox Delivery Rate 03/114 98.5 96 18 117/58 94 Room Air 03/110 Room Air 03/115 97.9 122 18 123/73 96 Room Air Allergies Coded Allergies: azithromycin (Mild, HIVES 10/27/16) Reconcile Medications Amlodipine Besylate 10 MG TABLET 1 TAB PO DAILY BP (Reported) Metoprolol Tartrate 25 MG TABLET 1 TAB PO BID HEART/BP (Reported) Ondansetron (Zofran Odt) 4 MG TAB.RAPDIS 1 TAB SL TID nausea Ondansetron (Zofran Odt) 4 MG TAB.RAPDIS 1 TAB SL TID PRN nausea Ondansetron (Zofran Odt) 4 MG TAB.RAPDIS 1 TAB SL TID PRN nausea Oxycodone HCl/Acetaminophen (Percocet 5-325 MG Tablet) 5 MG-325 MG TABLET 1-2 TAB PO Q6P PRN pain Oxycodone HCl/Acetaminophen (Percocet 5-325 MG Tablet) 5 MG-325 MG TABLET 1 TAB PO BID PRN pain Oxycodone HCl/Acetaminophen (Percocet 5-325 MG Tablet) 5 MG-325 MG TABLET 1-2 TAB PO 4 TIMES/DAY PRN severe pain Zolpidem Tartrate 10 MG TABLET 1 TAB PO PRN SLEEP (Reported) Triage Note: RECEIVED 31 YO MALE WITH HX OF PANCREATITIS, C/O MID ABDOMINAL AREA PAIN RADIATING TO BACK, STARTED THIS AFTERNOON WITH NAUSEA, VOMITING AND DIARRHEA. Triage Nurses Notes Reviewed? yes HPI: Patient presents with worsening periumbilical pain that radiates and wraps around to his back. Patient states the pain is been going on for the past 2 weeks but a few hours ago it acutely got worse. Pain is currently 10 out of 10. Positive nausea but no vomiting. No diarrhea. Pain is sharp and stabbing in nature. There are no aggravating or mitigating factors. Patient states that he has pancreatitis and that his pancreas is burned out and does not have an elevated lipase. Past History Travel History Traveled to [place] past 21 day No Medical History Any Pertinent Medical History? see below for history Neurological: NONE EENT: NONE Cardiovascular: hypertension, ELEVATED TRYGLICERIDES Respiratory: NONE Gastrointestinal: pancreatitis Hepatic: NONE Renal: NONE Musculoskeletal: NONE Psychiatric: NONE Endocrine: NONE Blood Disorders: NONE Cancer(s): NONE Surgical History Surgical History: non-contributory Psychosocial History What is your primary language Mexican Tobacco Use: Never used ETOH Use: denies use Illicit Drug Use: denies illicit drug use Family History Hx Contributory? No Review of Systems Review of Systems Constitutional: Reports: no symptoms. EENTM: Reports: no symptoms. Respiratory: Reports: no symptoms. Cardiovascular: Reports: no symptoms. GI: Reports: see HPI, abdominal pain, nausea. Genitourinary: Reports: no symptoms. Musculoskeletal: Reports: no symptoms. Skin: Reports: no symptoms. Neurological/Psychological: Reports: no symptoms. Hematologic/Endocrine: Reports: no symptoms. Immunologic/Allergic: Reports: no symptoms. All Other Systems: Reviewed and Negative Physical Exam Physical Exam General Appearance: well developed/nourished, alert, awake, anxious, moderate distress Head: atraumatic, normal appearance Eyes: Bilateral: PERRL, EOMI, other (ANICTERIC). Ears, Nose, Throat, Mouth: hearing grossly normal, DRY MUCUS MEMBRANES Neck: normal inspection, supple, full range of motion Respiratory: normal breath sounds, chest non-tender, no respiratory distress, lungs clear Cardiovascular: regular rate/rhythm, normal peripheral pulses Gastrointestinal: normal bowel sounds, soft, no organomegaly, tenderness ( PERIUMBILICAL), NO REBOUND OR GUARDING Back: normal inspection, normal range of motion, NO CVA TENDERNESS Extremities: normal range of motion Neurologic/Psych: no motor/sensory deficits, awake, alert, oriented x 3, normal gait, normal mood/affect Skin: intact, normal color, warm/dry Core Measures ACS in differential dx? No Severe Sepsis Present: No Septic Shock Present: No Progress Differential Diagnosis: biliary colic, cholecystitis, diverticulitis, gastritis, hepatitis, ischemic bowel, inflamm bowel dis, pancreatitis Plan of Care: Orders Procedure Date/time Status URINALYSIS 03/11 2101 Active TRIGLYCERIDES 03/11 2101 Complete LIPASE 03/11 2101 Complete ETHANOL 03/11 2101 Complete COMPREHENSIVE METABOLIC PANEL 03/11 2101 Complete CBC WITHOUT DIFFERENTIAL 07/30 2101 Complete AMYLASE 03/11 2101 Complete Laboratory Tests 03/11/172109: Anion Gap 15, Estimated GFR > 60, BUN/Creatinine Ratio 16.7, Glucose 166 H, Calcium 9.2, Total Bilirubin 0.6, AST 68 H, ALT 96 H, Alkaline Phosphatase 101 , Total Protein 7.4, Albumin 4.5, Globulin 2.9, Albumin/Globulin Ratio 1.6, Triglycerides 354 H, Amylase 35, Lipase 90, CBC w Diff NO MAN DIFF REQ, RBC 4.92, MCV 89.3, MCH 30.8, RDW 13.5, MPV 8.1, Gran % 56.1, Lymphocytes % 32.9, Monocytes % 7.9, Eosinophils % 2.6, Basophils % 0.5, Absolute Granulocytes 3.6, Absolute Lymphocytes 2.1, Absolute Monocytes 0.5, Absolute Eosinophils 0.2, Absolute Basophils 0, PUBS MCHC 34.5, Serum Alcohol 251.0 Initial ED EKG: none Comments: Patient states that the IV pain medication helps but then the pain starts come back. Patient states that he cannot stay in the hospital because of work commitments and he has an appointment with Dr. Finney on Sunday. Patient would like to go home with a prescription for pain medication and antinausea medications clear liquid diet and he'll follow-up with Dr. Finney on Sunday. Departure Departure Disposition: HOME OR SELF CARE Condition: Stable Clinical Impression Primary Impression: Pancreatitis Referrals: JOZEF LISA,ANH (PCP/Family) PILO LISA,EDUAR Swain Additional Instructions: CLEAR LIQUIDS ONLY UNTIL PAIN FREE RETURN IF SYMPTOMS WORSEN OR FOR ANY CONCERNS Departure Forms: Customer Survey General Discharge Information Prescriptions: Current Visit Scripts Hydromorphone HCl (Dilaudid) 1 TAB PO Q6P PRN PAIN #20 TAB Ondansetron (Zofran Odt) 1 TAB SL TID PRN NAUSEA #10 TAB
[2017-03-11 21:23] LABS: ABSOLUTE BASOPHIL COUNT 0 /CUMM (0.0-0.2); ABSOLUTE EOSINOPHIL COUNT 0.2 /CUMM (0.0-0.7); ABSOLUTE GRANULOCYTE CT 3.6 /CUMM (1.4-6.5); ABSOLUTE LYMPH COUNT 2.1 /CUMM (1.2-3.4); ABSOLUTE MONOCYTE COUNT 0.5 /CUMM (0.10-0.60); BASOPHIL % 0.5 % (0.0-2.0); EOSINOPHIL % 2.6 % (0-5); GRANULOCYTE % 56.1 % (42.2-75.2); HEMATOCRIT 43.9 % (42-52); MEAN CORPUSCULAR HGB 30.8 PG (27.0-31.0); MEAN CORPUSCULAR HGB CONC 34.5 G/DL (33.0-37.0); MEAN CORPUSCULAR VOLUME 89.3 FL (80.0-94.0); MEAN PLATELET VOLUME 8.1 FL (7.4-10.4); PLATELET COUNT 219 /CUMM (130-400); RBC DISTRIBUTION WIDTH 13.5 % (11.5-14.5); RED BLOOD CELL CT 4.92 /CUMM (4.70-6.10); WHITE BLOOD CELL COUNT 6.5 /CUMM (4.8-10.8)
[2017-03-11 22:24] VITALS: BP 117/58
[2017-03-11] MEDS ORDERED: DILAUDID2 M1 PO (23:00)
[2017-03-11] MEDS ORDERED: ZOFRAN ODT4 M1 SL (23:01)
== END 2017-03-11 23:13 ==
LOC: ERH 20:38
PROVIDERS: Emergency Medicine
DX: K85.90 Acute pancreatitis without necrosis or infection, unspecified (principal); I10 Essential (primary) hypertension
CPT/HCPCS: 96361; 96374; 96375; 96376; G0480; J2405